=== PATIENT | female | born 1975 | race Caucasian/White ===

== ENCOUNTER 2022-04-20 17:32 | Emergency (ER) | payer OTHER ==
[2022-04-20 18:24] VITALS: BP 117/78; PULSE 102; RESP 18; TEMP 98.4; BMI 25.3
[2022-04-20] MEDS ORDERED: CEPHALEXIN MONOHYDRATE 500 MG CAPSULE (UD) PO ONE (19:38)
[2022-04-20] MEDS ORDERED: CEPHALEXIN MONOHYDRATE 500 MG CAPSULE (UD) ONE (19:38)
[2022-04-20 20:04] LABS: EPI CELLS 12 /uL (0-25.1); HYALINE CASTS 2 /uL (0-3.1); URINE APPEARANCE TURBID; URINE BACTERIA 2663 /uL (0-1359); URINE BILIRUBIN NEGATIVE (NEGATIVE); URINE COLOR YELLOW; URINE GLUCOSE (UA) NEGATIVE (NEGATIVE); URINE KETONE 1+ (NEGATIVE); URINE LEUK ESTERASE 3+ (NEGATIVE); URINE NITRITE NEGATIVE (NEGATIVE); URINE PROTEIN 2+ (NEGATIVE); URINE RBC 307 /uL (0-23.9); URINE WBC 16333 /uL (0-25.8)
== END 2022-04-20 20:00 | disposition home or self-care (01) ==
LOC: JERFT 17:32
DX: J02.0 Streptococcal pharyngitis (principal); N30.00 Acute cystitis without hematuria
CPT/HCPCS: 81003; 87086; 87186; 87651; 99283-25